=== PATIENT | male | born 1980 | race Caucasian/White ===

== ENCOUNTER → 2020-02-22 | Outpatient (CLI) | payer OTHER | LOC: SJCVCIMAG 13:50 | PROVIDERS: ATTEND Internal Medicine Cardiovascular Disease | DX: Z45.018 Encounter for adjustment and management of other part of cardiac pacemaker (principal); I95.1 Orthostatic hypotension; I49.5 Sick sinus syndrome; G40.109 Localization-related (focal) (partial) symptomatic epilepsy and epileptic syndromes with simple partial seizures, not intractable, without status epilepticus; G80.9 Cerebral palsy, unspecified; E78.00 Pure hypercholesterolemia, unspecified ==